=== PATIENT | female | born 1990 | race Caucasian/White ===

== ENCOUNTER → 2018-06-29 | Outpatient (CLI) | payer OTHER ==
[2018-06-29 09:32] VITALS: BP 116/65; PULSE 93; TEMP 97.5; BMI 34.0
== END ==
LOC: WWCWWP 09:23
PROVIDERS: ATTEND Obstetrics & Gynecology
DX: Z53.9 Procedure and treatment not carried out, unspecified reason (principal)

== ENCOUNTER 2018-10-02 20:45 | Inpatient (IN) | payer OTHER ==
[2018-10-02] MEDS ORDERED: TERBUTALINE 1 MG/ML VIAL SQ PRN (21:13)
[2018-10-02] MEDS ORDERED: PENICILLIN G POTASSIUM 5,000,000 UNIT in DEXTROSE 5% IN WATER 100 ML IVPB STA ×2 (21:13)
[2018-10-02] MEDS ORDERED: METHYLERGONOVINE 0.2 MG/ML 1 ML AMP IM PRN (21:13)
[2018-10-02] MEDS ORDERED: CARBOPROST TROMETHAMINE 250 MCG/ML 1 ML AMP IM PRN (21:13)
[2018-10-02] MEDS ORDERED: OXYTOCIN 10 UNIT/ML 1 ML VIAL IM PRN (21:13)
[2018-10-02] MEDS ORDERED: LIDOCAINE 0.5% (PF) 5 MG/ML (50 ML SDV) SQ PRN (21:13)
[2018-10-02] MEDS ORDERED: LACTATED RINGERS 1,000 ML IV SCH (21:15)
[2018-10-02 21:36] VITALS: BMI 36.2
[2018-10-02 21:49] LABS: Amphetamine Screen,Urine Not Detected (NotDetected); Barbiturate Screen,Urine Not Detected (NotDetected); Benzodiazepines Screen,Urine Not Detected (NotDetected); Cocaine Screen,Urine Not Detected (NotDetected); Methadone Screen, Urine Not Detected (NotDetected); Opiate Screen,Urine Not Detected (NotDetected); Oxycodone Screen, Urine Not Detected (NotDetected); Phencyclidine Screen,Urine Not Detected (NotDetected); Tricyclic Antidepressant,Urine Not Detected (NotDetected); Urn Cannabinoid Scrn Not Detected (NotDetected)
[2018-10-02 21:49] LABS: Basophils % (A) 0 %; Eosinophils # (A) 0.1 k/uL (0-0.7); Eosinophils % (A) 2 %; HCT 37.1 % (34.0-46.0); HGB 11.9 gm/dL (11.4-16.0); Lymphocytes % (A) 17 %; MCH 30.1 pg (25.0-35.0); MCV 94.2 fL (80.0-100.0); Mean Platelet Volume 7.9; Monocytes # (A) 0.4 k/uL (0-1.0); Monocytes % (A) 7 %; Neutrophils # (A) 4.4 k/uL (1.3-7.7); Neutrophils % (A) 72 %; Platelet Count 184 k/uL (150-450); RBC 3.94 m/uL (3.80-5.40); RDW 13.3 % (11.5-15.5); WBC 6.1 k/uL (3.8-10.6)
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
[2018-10-02] MEDS ORDERED: IBUPROFEN 600 MG TAB PO PRN (22:54)
[2018-10-02] MEDS ORDERED: ZOLPIDEM 5 MG TAB PO PRN (22:54)
[2018-10-02] MEDS ORDERED: diphenhydrAMINE 50 MG CAP PO PRN (22:54)
[2018-10-02] MEDS ORDERED: HYDROCORTISONE 2.5% RECTAL CREAM 30 GM TUBE RECTAL PRN (22:54)
[2018-10-02] MEDS ORDERED: WITCH HAZEL 1 EACH MED..PAD TOPICAL PRN (22:54)
[2018-10-02] MEDS ORDERED: diphenhydrAMINE 50 MG/ML 1 ML VIAL IVP PRN ×2 (22:54)
[2018-10-02] MEDS ORDERED: SIMETHICONE 80 MG CHEWABLE PO PRN (22:54)
[2018-10-02] MEDS ORDERED: LANOLIN CREAM 5 GM TUBE TOPICAL PRN (22:54)
[2018-10-02] MEDS ORDERED: diphenhydrAMINE 25 MG CAP PO PRN (22:54)
[2018-10-02] MEDS ORDERED: BENZOCAINE/MENTHOL SPRAY 1 GM/SPRAY AEROSOL TOPICAL PRN (22:54)
--- NOTE | 2018-10-02 22:54 | P.PROBDLV ---
Vaginal Delivery Note - . Vaginal Delivery Note: This is a 27-year-old female 4 para 3003 EDC 10/09/2018 at 39 weeks gestation. Patient states that she had limited care with Dr. Mitchell at [facility]. She came here because our hospital was closer. She has been leaking clear fluid per vagina since 1900 hrs. with mild uterine contractions. Fetus is been active throughout the . Limited labs have been received and reviewed. Please see admitting history and physical for details. Group B strep cultures were negative. Penicillin G 6 million units were hung. Patient progressed through labor and declined the option for analgesia. She became completely dilated at 2237 hours. The perineal body was prepped and draped in usual sterile fashion. With excellent maternal expulsive efforts infant's head delivered occiput anterior and he restituted accordingly. There was no nuchal cord noted. The right or anterior shoulder was delivered easily from underneath the pubic symphysis at which time the oropharynx, nasopharynx, and external nares were all bulb suctioned. Patient was officially delivered of a male infant at 2241 hours. Umbilical cord was doubly clamped and ligated, he was handed to waiting nurses for evaluation where scores of 8 and 9 at one and 5 minutes respectively were given. The placenta delivered spontaneously at 2243 hours. It was inspected, noted to be intact with trivascular cord. weighed 7 lbs. 10 oz. or 3470 g. Inspection of the cervix, vagina, perineum, periurethral, and perirectal areas revealed no lacerations and no defects. Fundus is firm and in the midline, symmetric and 18 week size. Scant vaginal bleeding noted. Total estimated blood loss 250 mL's. All sponge needle and instrument counts are correct. Patient is requesting circumcision for her son.
[2018-10-02] MEDS ORDERED: OXYTOCIN 20 UNITS/1000 ML NS 1,000 ML IV SCH (23:00)
[2018-10-03] MEDS: ACETAMINOPHEN TAB 325 MG TAB PO PRN ×2 (00:41→14:18)
[2018-10-03] MEDS ORDERED: PENICILLIN G POTASSIUM 2,500,000 UNIT in DEXTROSE 5% IN WATER 100 ML IVPB SCH ×2 (01:14)
[2018-10-03 07:55] LABS: Basophils % (A) 0 %; Eosinophils # (A) 0.1 k/uL (0-0.7); Eosinophils % (A) 1 %; HCT 36.2 % (34.0-46.0); HGB 11.3 gm/dL (11.4-16.0); Hypochromasia Slight; Lymphocytes # (A) 1.2 k/uL (1.0-4.8); Lymphocytes % (A) 13 %; MCH 29.5 pg (25.0-35.0); MCHC 31.1 g/dL (31.0-37.0); MCV 95.1 fL (80.0-100.0); Mean Platelet Volume 8.3; Monocytes # (A) 0.8 k/uL (0-1.0); Monocytes % (A) 9 %; Neutrophils # (A) 6.7 k/uL (1.3-7.7); Neutrophils % (A) 74 %; Platelet Count 156 k/uL (150-450); RBC 3.81 m/uL (3.80-5.40); RDW 13.1 % (11.5-15.5)
[2018-10-03] MEDS: SENNOSIDES-DOCUSATE SODIUM 1 EACH TAB PO SCH ×2 (08:11→20:35)
--- NOTE | 2018-10-03 09:05 | P.PN ---
Subjective Progress Note Date: 10/03/18 slept well. No complaints Objective - Vital Signs Vital signs: Vital Signs Temp 98.2 F 10/03/18 08:00 Pulse 84 10/03/18 08:00 Resp 16 10/03/18 08:00 BP 104/59 10/03/18 08:00 Pulse Ox 99 10/02/18 21:09 Intake & Output 10/02/18 10/03/18 10/03/18 18:59 06:59 18:59 Intake Total 100 Output Total 1250 Balance -1150 Weight 114.668 kg Intake: Oral 100 Output: Estimated Blood Loss 1250 Other: # Voids 1 - Constitutional General appearance: Present: average body habitus, cooperative - EENT Eyes: Present: PERRLA ENT: Present: hearing grossly normal - Neck Neck: Present: normal ROM Thyroid: bilateral: normal size - Respiratory Respiratory: bilateral: CTA - Cardiovascular Rhythm: regular - Gastrointestinal General gastrointestinal: Present: normal bowel sounds - Integumentary Integumentary: Present: normal - Neurologic Neurologic: Present: CNII-XII intact - Musculoskeletal Musculoskeletal: Present: gait normal, strength equal bilaterally - Psychiatric Psychiatric: Present: A&O x's 3, appropriate affect, intact judgment & insight - Labs CBC & Chem 7: 10/03/18 06:17 Labs: Abnormal Lab Results - Last 24 Hours (Table) 10/03/18 Range/Units 06:17 Hgb 11.3 L (11.4-16.0) gm/dL Assessment and Plan Assessment: Doing well day #1 Plan: Continue care. Circumcision today. Likely discharge home tomorrow. Time with Patient: Less than 30
--- NOTE | 2018-10-04 07:52 | P.DS ---
Providers Date of admission: 10/02/18 21:08 Expected date of discharge: 10/04/18 Attending physician: Deena Friend Primary care physician: Stated None Hospital Course: This is a 27-year-old black female 4 para 3003 EDC 10/09/2018 at 39 weeks gestation. Patient presented to our hospital with limited care, patient has been seen by Dr. Mitchell in his office. She arrived with spontaneous amniorrhexis, clear fluid. is remarkable for blood type O +, rubella status immune, positive group B strep cultures. Please see my dictated history and physical for details. Patient underwent a spontaneous vaginal delivery and gave to a liveborn male infant with scores of 8 and 9 at one and 5 minutes respectively. weighed 3470 g, or 7 lbs. 10 oz. There was an estimated blood loss recorded of 250 mL's. No perineal suturing was needed. Please see my dictated delivery note for details. This morning the patient is doing well. She is voiding, ambulating and passing flatus without difficulty. Vital signs are stable and she is afebrile. Fundus is firm and in the midline, symmetric and 16-18 week size. Extremities are negative for edema. Chest is clear. Breasts are not engorged. Circumcision has been performed on the per her request. Patient is judged to be in very good condition for discharge home. She will follow-up with Dr. Mitchell in his office in 6 weeks. I have reminded her no intercourse, tampons or douching. She will use [id number] Advil or Aleve, or Motrin 200 mg pills, 3 every 6 hours as needed. She will call Dr. Mitchell with any fevers shakes or chills, foul smelling or copious lochia, with the passage of large blood clots, with any pain not alleviated by over-the- counter products, or indeed with any concerns. I have discussed with her contraceptive options, she will likely proceed with Depo-Provera, and may receive this through Dr. Mitchell's office. Patient Condition at Discharge: Good Plan - Discharge Summary Discharge Rx Participant: No New Discharge Prescriptions: No Action Pnv No.95/Ferrous Fum/Folic AC [ Multivitamin Tablet] 1 each PO DAILY Discharge Medication List Pnv No.95/Ferrous Fum/Folic AC [ Multivitamin Tablet] 1 each PO DAILY [History] Discharge Disposition: HOME SELF-CARE
[2018-10-04] MEDS: SENNOSIDES-DOCUSATE SODIUM 1 EACH TAB PO SCH (11:08)
[2018-10-04 15:44] VITALS: BP 114/66; PULSE 87; RESP 18; TEMP 98.4
== END 2018-10-04 18:46 | disposition home or self-care (01) | DRG 807 ==
LOC: FBPOP 20:45 → 4FBP 21:08
PROVIDERS: ADMIT Obstetrics & Gynecology; ATTEND Obstetrics & Gynecology
PROC: 10E0XZZ Delivery of Products of Conception, External Approach (ICD-10-PCS; principal; 2018-10-02)
DX: O98.82 Other maternal infectious and parasitic diseases complicating childbirth (principal); Z37.0 Single live birth; B95.1 Streptococcus, group B, as the cause of diseases classified elsewhere; O99.344 Other mental disorders complicating childbirth; Z3A.39 39 weeks gestation of pregnancy; O99.334 Smoking (tobacco) complicating childbirth; F17.210 Nicotine dependence, cigarettes, uncomplicated; F41.9 Anxiety disorder, unspecified; F32.9 Major depressive disorder, single episode, unspecified; Z79.899 Other long term (current) drug therapy; Z86.19 Personal history of other infectious and parasitic diseases; Z62.810 Personal history of physical and sexual abuse in childhood; Z83.3 Family history of diabetes mellitus; Z82.49 Family history of ischemic heart disease and other diseases of the circulatory system
CPT/HCPCS: 59025; 80306; 85025; 86850; 86900; 86901; 88307; 99213